=== PATIENT | male | born 1965 | race Caucasian/White ===

== ENCOUNTER → 2017-05-13 | Outpatient (CLI) | payer OTHER ==
[~2017-05-13] MED LIST: ENAL10TA PO
[2017-05-13 10:31] LABS: ASPARTATE AMINO TRANSFERASE 18 U/L (15-37); BLOOD UREA NITROGEN 16 mg/dL (7-18)
== END | disposition home or self-care (01) ==
LOC: STAR 09:29
PROVIDERS: ATTEND Surgery Vascular Surgery
DX: K40.90 Unilateral inguinal hernia, without obstruction or gangrene, not specified as recurrent (principal)
CPT/HCPCS: 36415; 80053

== ENCOUNTER 2017-08-12 12:08 | Day surgery (SDC) | payer OTHER ==
[~2017-08-12] VITALS: Ht 188 cm; Wt 88.6 kg
[2017-08-12 12:39] VITALS: BP 136/93
[2017-08-12] MEDS ORDERED: PROPOFOL 10 MG/ML, 20ML ONE (12:57)
[2017-08-12] MEDS ORDERED: ROCURONIUM 10 MG/ML,10ML ONE (12:57)
[2017-08-12] MEDS ORDERED: MIDAZOLAM 1 MG/ML, 2ML ONE (12:57)
[2017-08-12] MEDS ORDERED: DEXAMETHASONE 4 MG/ML, 1ML ONE (12:57)
[2017-08-12] MEDS ORDERED: FENTANYL PF 250 MCG/5ML ONE (12:58)
[2017-08-12] MEDS ORDERED: LACTATED RINGERS 1,000 ML IV SCH (13:08)
[2017-08-12 13:29] LABS: ALANINE AMINOTRANSFERASE 33 U/L (12-78); ALBUMIN 4.1 g/dL (3.4-5.0); ANION GAP 5 mmol/L (5-15); CALCIUM 8.6 mg/dL (8.5-10.1); CHLORIDE 106 mmol/L (98-107); CREATININE 1.04 mg/dL (0.7-1.3)
[2017-08-12 13:31] LABS: ALKALINE PHOSPHATASE 51 U/L (45-117); BILIRUBIN,TOTAL 0.7 mg/dL (0.2-1.0); TOTAL PROTEIN 7.4 g/dL (6.4-8.2)
[2017-08-12] MEDS ORDERED: BUPIVACAINE/PF 0.5% ONE (14:15)
[2017-08-12] MEDS ORDERED: BACITRACIN 50,000 UNIT ONE (14:15)
[2017-08-12] MEDS ORDERED: EPINEPHRINE 1 MG/ML, 1ML ONE (14:15)
[2017-08-12] MEDS ORDERED: LIDOCAINE-MPF 2% ,5ML ONE (14:44)
[2017-08-12] MEDS ORDERED: BUPIVACAINE/PF 0.5% INFIL ONE (15:07)
[2017-08-12] MEDS ORDERED: BACITRACIN 50,000 UNIT IRRIG ONE (15:07)
[2017-08-12] MEDS ORDERED: ACETAMINOPHEN 325 MG TABLET PO PRN (15:30)
[2017-08-12] MEDS ORDERED: ONDANSETRON 2MG/ML, 2ML IVPush PRN (15:30)
[2017-08-12] MEDS ORDERED: LABETALOL 5MG/ML, 20ML IV PRN (15:30)
[2017-08-12] MEDS ORDERED: morphine SULFATE 10 MG/ML, 1ML IV PRN (15:30)
[2017-08-12] MEDS ORDERED: FENTANYL PF 100 MCG/2ML IV PRN (15:30)
[2017-08-12] MEDS ORDERED: MEPERIDINE/PF 25MG/0.5ML IVPush PRN (15:30)
[2017-08-12] MEDS ORDERED: hydrALAzine 20 MG/ML, 1ML IV PRN (15:30)
[2017-08-12] MEDS ORDERED: HYDROmorphone 1 MG/ML, 1ML IV PRN (15:30)
[2017-08-12] MEDS ORDERED: OXYcodone 5 MG/5 ML ORAL.SOL UDC PO PRN (15:30)
[2017-08-12] MEDS ORDERED: ALBUTEROL SULFATE 2.5 MG/3 ML NPPB PRN (15:30)
[2017-08-12] MEDS ORDERED: HYDROcodone/APAP 7.5-325MG/15ML UDC PO PRN (15:30)
[2017-08-12] MEDS ORDERED: KETOROLAC 30 MG/1 ML IV PRN (15:30)
[2017-08-12] MEDS ORDERED: METOCLOPRAMIDE 5 MG/ML, 2ML IV PRN (15:30)
[2017-08-12] MEDS ORDERED: MIDAZOLAM 1 MG/ML, 2ML IV PRN (15:30)
[2017-08-12] MEDS ORDERED: OXYcodone 5 MG/5 ML ORAL.SOL UDC ONE (15:47)
[2017-08-12] MEDS ORDERED: ACETAMINOPHEN 650 MG/20.3 ML UDC ONE (15:47)
[2017-08-12] MEDS ORDERED: ONDANSETRON 2MG/ML, 2ML ONE (17:33)
[2017-08-12] MEDS ORDERED: PROMETHAZINE 25 MG/ML, 1ML IM ONE (18:00)
[2017-08-12] MEDS ORDERED: ONDANSETRON 2MG/ML, 2ML IVPush ONE (18:00)
== END 2017-08-12 18:21 | disposition home or self-care (01) ==
LOC: OUT 12:08
PROVIDERS: ATTEND Surgery Vascular Surgery
DX: K40.90 Unilateral inguinal hernia, without obstruction or gangrene, not specified as recurrent (principal); I10 Essential (primary) hypertension; Z79.899 Other long term (current) drug therapy; Z80.0 Family history of malignant neoplasm of digestive organs; Z72.89 Other problems related to lifestyle
CPT/HCPCS: 36415; 49505; 80053; C1781; J0171; J1100; J2250; J2405; J2704; J3010; J3490; J7120

== ENCOUNTER 2018-08-15 16:29 | Emergency (ER) | payer OTHER ==
[~2018-08-15] VITALS: Ht 188 cm; Wt 90.0 kg
[2018-08-15 16:59] VITALS: BP 138/101
--- NOTE | 2018-08-15 17:19 | NUR ---
PT SEND FROM PMD OFFICE; + LEFT LEG DVT BY U/S TODAY.
[2018-08-15] MEDS ORDERED: APIXABAN 5 MG TABLET PO ONE (17:30)
[2018-08-15] MEDS ORDERED: APIXABAN 5 MG TABLET ONE ×2 (17:53→18:01)
--- NOTE | 2018-08-15 18:07 | NUR ---
PT CLEARED FOR DISCHARGE POST ELIQUIS. AMBULATING WELL UPON DEPARTURE.
== END 2018-08-15 18:16 | disposition home or self-care (01) ==
LOC: ED 18:00
DX: I82.402 Acute embolism and thrombosis of unspecified deep veins of left lower extremity (principal); I10 Essential (primary) hypertension
CPT/HCPCS: 99283

== ENCOUNTER → 2018-08-15 | Outpatient (CLI) | payer OTHER | END | disposition home or self-care (01) | LOC: CFH 14:15 | PROVIDERS: ATTEND Podiatrist | DX: I82.492 Acute embolism and thrombosis of other specified deep vein of left lower extremity (principal) ==